=== PATIENT | male | born 1985 | race Two or more races ===

== ENCOUNTER 2021-04-12 22:28 | Emergency (ER) | payer MEDICAID ==
[~2021-04-12] VITALS: Ht 188 cm; Wt 111.1 kg
[2021-04-12] MEDS ORDERED: ASPirin 81 mg TAB PO ONE (22:45)
[2021-04-12] MEDS ORDERED: LORazepam 2MG/ML-1ML VIAL IV ONE (22:45)
[2021-04-12] MEDS ORDERED: SODIUM CHLORIDE 0.9% 1,000 ML IVB ONE (22:45)
[2021-04-12 23:01] LABS: Basophils # (auto) 0 10 ^3/uL (0-0.2); Basophils % (auto) 0.2 % (0.0-2.0); Eosinophils # (auto) 0 10 ^3/uL (0-0.8); Eosinophils % (auto) 0.5 % (0.0-7.0); Hematocrit 40.3 % (41.0-53.0); Hemoglobin 14.2 g/dL (13.5-17.5); Lymphocytes # (auto) 2.3 10 ^3/uL (0.4-5.4); Lymphocytes % (auto) 31.9 % (10.0-50.0); Mean Corpuscular Hemoglobin 31.6 pg (28.0-32.0); Mean Corpuscular Hgb Conc. 35.1 g/dL (32.0-36.0); Mean Corpuscular Volume 89.8 fL (80.0-100.0); Monocytes # (auto) 0.7 10 ^3/uL (0-1.3); Monocytes % (auto) 9.3 % (0.0-12.0); Neutrophils # (auto) 4.2 10 ^3/uL (1.6-8.6); Neutrophils % (auto) 58.1 % (37.0-80.0); Nucleated Red Blood Cells % 0.2 %; Red Blood Cells 4.48 10^6/uL (4.5-5.90); Red Cell Distribution Width 12.7 % (11.8-14.3); White Blood Cell 7.2 10^3/uL (4.4-10.8)
[2021-04-12 23:15] LABS: INR 1.02 (0.9-1.15); Partial Thromboplastin Time 28.6 sec (23.0-31.2)
[2021-04-12 23:18] LABS: Alanine Aminotransferase 21 U/L (16-61); Albumin 3.8 g/dL (3.4-5.0); Anion Gap 11 (5-15); Aspartate Aminotransferase 21 U/L (15-37); BUN/Creatinine Ratio 14.6; Blood Urea Nitrogen 12 mg/dL (7-18); Calcium 8.8 mg/dL (8.5-10.1); Carbon Dioxide 25 mmol/L (21-32); Chloride 88 mmol/L (98-107); GFR African American 139 mL/min; GFR Non-African American 115 mL/min; Glucose 117 mg/dL (74-106); Magnesium 1.9 mg/dL (1.6-2.6); Sodium 124 mmol/L (136-145)
[2021-04-12 23:23] LABS: Alkaline Phosphatase 62 U/L (45-117); Bilirubin, Total 0.7 mg/dL (0.2-1.0); Total Protein 7.4 g/dL (6.4-8.2)
[2021-04-12 23:30] LABS: Potassium 2.7 mmol/L (3.5-5.1)
[2021-04-12] MEDS ORDERED: POTASSIUM EFFERVESENT TAB 25 MEQ PO ONE (23:45)
[2021-04-12] MEDS ORDERED: POTASSIUM CHL 20MEQ/100ML 100 ML IV ONE (23:45)
[2021-04-13 05:29] VITALS: BP 96/46
== END 2021-04-13 05:37 | disposition home or self-care (01) ==
LOC: EDBD 22:28 → ER 22:33
DX: F41.9 Anxiety disorder, unspecified (principal); R07.89 Other chest pain; Z20.822 Contact with and (suspected) exposure to COVID-19
CPT/HCPCS: 36415; 71045; 80053; 83735; 83880; 84443; 84484; 85025; 85610; 85730; 87426; 93005; 96361; 96374; 99285; J2060; J3480; J7030